=== PATIENT | female | born 1940 | race African-American/Black ===

== ENCOUNTER → 2017-02-23 | Outpatient (CLI) | payer MEDICARE, BC, OTHER ==
--- NOTE | 2017-02-23 14:38 | RAD ---
Indication chronic chest pain. PA and lateral views of the chest were obtained and are compared to an examination 09/18/2010. Postoperative changes are noted. Clips are seen overlying the right upper chest. Somewhat tortuous thoracic aorta is noted. Mild aneurysmal dilatation of the arch is not excluded. There is no congestive heart failure. An acute parenchymal infiltrate is not seen.. There is no pleural fluid. There is no pneumothorax. IMPRESSION: No acute finding apparent in the chest
== END | disposition home or self-care (01) ==
LOC: DXRAD 14:00
PROVIDERS: ATTEND Internal Medicine Cardiovascular Disease
DX: I65.23 Occlusion and stenosis of bilateral carotid arteries (principal); R06.09 Other forms of dyspnea; R05 Cough
CPT/HCPCS: 71020

== ENCOUNTER 2018-08-30 20:20 | Emergency (ER) | payer MEDICARE, BC, OTHER ==
[2018-08-30] MEDS ORDERED: cloNIDine HCL 0.1 MG TABLET PO ONE (20:30)
[2018-08-30] MEDS ORDERED: IOHEXOL 350 MG/ML 100 ML VIAL. IV ONE (20:30)
[2018-08-30 20:59] LABS: BASO # 0.1 x10^3/uL (0.0-0.2); BASO % 1 % (0-3); EOS # 0.2 x10^3/uL (0.0-0.7); EOS % 4 % (0-3); HEMATOCRIT 36.2 % (36.0-47.0); LYMPH # 2.5 x10^3/uL (1.0-4.8); LYMPH % 43 % (24-48); MEAN CORPUSCULAR HEMOGLOBIN 28 pg (25-35); MEAN CORPUSCULAR HGB CONC 33 g/dL (31-37); MEAN CORPUSCULAR VOLUME 85 fL (79-100); MONO # 0.5 x10^3/uL (0.0-1.1); MONO % 9 % (0-9); NEUT # 2.6 x10^3uL (1.8-7.7); NEUT % 44 % (31-73); PLATELET COUNT 147 x10^3/uL (140-400); RED BLOOD COUNT 4.25 x10^6/uL (3.50-5.40); RED CELL DISTRIBUTION WIDTH 14.5 % (11.5-14.5); WHITE BLOOD COUNT 5.8 x10^3/uL (4.0-11.0)
[2018-08-30] MEDS ORDERED: ESMOLOL 2500MG/250ML PREMIX 250 ML IV ONE (21:00)
[2018-08-30 21:06] LABS: ALBUMIN 3.9 g/dL (3.4-5.0); ALBUMIN/GLOBULIN RATIO 0.8 (1.0-1.7); CALCIUM 9.8 mg/dL (8.5-10.1); CREATININE 1.2 mg/dL (0.6-1.0); GFR 52.9; POTASSIUM 4.4 mmol/L (3.5-5.1); TOTAL BILIRUBIN 0.4 mg/dL (0.2-1.0); TOTAL PROTEIN 8.8 g/dL (6.4-8.2)
[2018-08-30] MEDS ORDERED: ONDANSETRON PF 4 MG/2 ML VIAL. IV ONE (21:15)
--- NOTE | 2018-08-30 21:21 | PHYS DOC ---
Adult General Chief Complaint Chief Complaint: CHEST PAIN HPI HPI 77-year-old female presents via EMS with central chest pain. She describes the pain as a tearing/sharp sensation. It radiates through to her back. The patient has a history of abdominal aortic aneurysm that leaked and was repaired in 2014. Her current pain feels similar. At its worse it is been 10 out of 10. On arrival it is 10 out of 10. The patient has been having intermittent pain last 3 days. Doesn't seem to be a particular pattern to the pain. Prior to arrival, the pain increased significantly and that's why she came to the ED. She denies fever or chills. The patient has been taking her medicines, but admits that she is not taking carvedilol twice a day because she didn't realize it was supposed to be twice a day. She is only taking it in the morning. Review of Systems Review of Systems Constitutional: Denies fever or chills [] Eyes: Denies change in visual acuity, redness, or eye pain [] HENT: Denies nasal congestion or sore throat [] Respiratory: shortness of breath [] Cardiovascular: No additional information not addressed in HPI [] GI: Denies abdominal pain, nausea, vomiting, bloody stools or diarrhea [] : Denies dysuria or hematuria [] Musculoskeletal: Denies back pain or joint pain [] Integument: Denies rash or skin lesions [] Neurologic: Denies headache, focal weakness or sensory changes [] Endocrine: Denies polyuria or polydipsia [] All other systems were reviewed and found to be within normal limits, except as documented in this note. Current Medications Current Medications Current Medications Medications (Trade) Dose Ordered Sig/Lbessing Start Time Stop Time Status Last Admin Dose Admin Clonidine HCl (Catapres) 0.2 mg 1X ONCE 08/30/18 20:30 08/30/18 20:36 DC Esmolol HCl 250 ml @ 0 mls/hr 1X ONCE 08/30/18 21:00 08/30/18 21:01 DC Iohexol (Omnipaque 350 Mg/ml) 100 ml 1X ONCE 08/30/18 20:30 08/30/18 20:36 DC 08/30/18 20:40 100 ML Allergies Allergies Allergies Coded Allergies Type Severity Reaction Last Updated Verified Penicillins Allergy Unknown 08/30/18 Yes codeine Allergy Unknown 08/30/18 Yes morphine Allergy Unknown 08/30/18 Yes prednisone Allergy Unknown 08/30/18 Yes promethazine Allergy Unknown 08/30/18 Yes rabeprazole Allergy Unknown 08/30/18 Yes simvastatin Allergy Unknown 08/30/18 Yes Physical Exam Physical Exam Constitutional: Well developed, well nourished, no acute distress, non-toxic appearance. [] HENT: Normocephalic, atraumatic, bilateral external ears normal, oropharynx moist, no oral exudates, nose normal. [] Eyes: PERRLA, EOMI, conjunctiva normal, no discharge. [] Neck: Normal range of motion, no tenderness, supple, no stridor. [] Cardiovascular:Heart rate regular rhythm, systolic ejection murmur 3/6[] Lungs & Thorax: Bilateral breath sounds clear to auscultation [] Abdomen: Bowel sounds normal, soft, no tenderness, no masses, no pulsatile masses. [] Skin: Warm, dry, no erythema, no rash. [] Back: No tenderness, no CVA tenderness. [] Extremities: No tenderness, no cyanosis, no clubbing, ROM intact, no edema. [] Neurologic: Alert and oriented X 3, normal motor function, normal sensory function, no focal deficits noted. [] Psychologic: Affect normal, judgement normal, mood normal. [] Current Patient Data Lab Results Laboratory Tests Test 08/30/18 20:50 White Blood Count 5.8 x10^3/uL (4.0-11.0) Red Blood Count 4.25 x10^6/uL (3.50-5.40) Hemoglobin 12.0 g/dL (12.0-15.5) Hematocrit 36.2 % (36.0-47.0) Mean Corpuscular Volume 85 fL (79-100) Mean Corpuscular Hemoglobin 28 pg (25-35) Mean Corpuscular Hemoglobin Concent 33 g/dL (31-37) Red Cell Distribution Width 14.5 % (11.5-14.5) Platelet Count 147 x10^3/uL (140-400) Neutrophils (%) (Auto) 44 % (31-73) Lymphocytes (%) (Auto) 43 % (24-48) Monocytes (%) (Auto) 9 % (0-9) Eosinophils (%) (Auto) 4 % (0-3) H Basophils (%) (Auto) 1 % (0-3) Neutrophils # (Auto) 2.6 x10^3uL (1.8-7.7) Lymphocytes # (Auto) 2.5 x10^3/uL (1.0-4.8) Monocytes # (Auto) 0.5 x10^3/uL (0.0-1.1) Eosinophils # (Auto) 0.2 x10^3/uL (0.0-0.7) Basophils # (Auto) 0.1 x10^3/uL (0.0-0.2) Sodium Level 139 mmol/L (136-145) Potassium Level 4.4 mmol/L (3.5-5.1) Chloride Level 103 mmol/L (98-107) Carbon Dioxide Level 27 mmol/L (21-32) Anion Gap 9 (6-14) Blood Urea Nitrogen 15 mg/dL (7-20) Creatinine 1.2 mg/dL (0.6-1.0) H Estimated GFR (Cockcroft-Gault) 52.9 BUN/Creatinine Ratio 13 (6-20) Glucose Level 99 mg/dL (70-99) Calcium Level 9.8 mg/dL (8.5-10.1) Total Bilirubin 0.4 mg/dL (0.2-1.0) Aspartate Amino Transferase (AST) 34 U/L (15-37) Alanine Aminotransferase (ALT) 24 U/L (14-59) Alkaline Phosphatase 105 U/L (46-116) Total Protein 8.8 g/dL (6.4-8.2) H Albumin 3.9 g/dL (3.4-5.0) Albumin/Globulin Ratio 0.8 (1.0-1.7) L EKG EKG Sinus rhythm, rate 67, normal axis, no ST elevations or depression.[] Radiology/Procedures Radiology/Procedures [] Course & Med Decision Making Course & Med Decision Making Pertinent Labs and Imaging studies reviewed. (See chart for details) The patient's blood pressure on arrival was 216/92. Her heart rate 62. The patient heart rate has been between 62 and 70. Patient's description of pain is concerning for aortic dissection. CT angiogram of the chest and abdomen has been ordered. I will start her on esmolol, but without bolus due to her heart rate. I have given her 75 g of fentanyl for pain. The patient has tolerated 100 mcg/kg/m of esmolol heart rate is 63. I discussed the patient with Dr. Seo and he has recommended the patient go to [facility]. Discussed this with the patient and she discussed with her family. They would prefer to go to [facility] where she had her previous aortic surgery. I discussed the patient with Dr. Weiss and Dr. Ruiz at [facility] and they have accepted the patient for admission. They have advised adding additional Cardene drip for the patient's blood pressure which is still 162/60. Patient will go by ambulance. Greater than 35 minutes of critical care time was spent on this patient exclusive of other billable procedures. [] Dragon Disclaimer Dragon Disclaimer This electronic medical record was generated, in whole or in part, using a voice recognition dictation system. Departure Departure: Impression: Primary Impression: Aortic aneurysm Additional Impressions: Chest pain Hypertensive emergency Disposition: 02 XFER SHT-TRM HOSP Condition: GUARDED Referrals: BLAKE BRADY MD (PCP) Problem Qualifiers Primary Impression: Aortic aneurysm Aortic location: thoracic aorta Presence of rupture: without rupture Qualified Codes: I71.2 - Thoracic aortic aneurysm, without rupture Additional Impressions: Chest pain Chest pain type: other chest pain Qualified Codes: R07.89 - Other chest pain NILTON HARDY DO Aug 30, 2018 21:21
[2018-08-30] MEDS ORDERED: IV NORMAL SALINE 500ML 500 ML IV ONE (21:30)
--- NOTE | 2018-08-30 21:39 | RAD ---
Examination: CT ANGIOGRAPHY CHEST ABDOMEN History: Chest pain, hx of Aortic dissection 2015
Gave Omni 350 100cc
Comparison/Correlation: None Findings: Axial images of the chest and abdomen were obtained following IV contrast according to arteriography protocol. Sternal wires are present. 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 Linear density involving the aortic arch at its left lateral aspect is probably artifactually this postoperative patient. There is no evidence of acute aortic dissection. Atherosclerotic calcific involvement of the thoracic aorta noted. 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 At least 50 percent stenosis of the proximal superior mesenteric artery noted. Inferior mesenteric artery unremarkable. Pulmonary arterial vasculature is normal with no thromboembolic disease. No pleural or pericardial effusion. Diffuse emphysematous involvement of the lung gee noted. Mild gravity dependent atelectasis noted. No enlarged thoracic lymph nodes. No focal suspicious pulmonary nodule or consolidation. Moderate quantity of debris in the stomach noted. Liver, spleen, pancreas, adrenal glands, and kidneys are unremarkable on arteriographic phase images provided. Cholecystectomy. Ascites involving the abdomen. No enlarged abdominal lymph nodes. No abdominal aortic aneurysm. 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 No findings of acute aortic dissection identified. Severe emphysematous involvement of the lung gee. 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 Electronically signed by: Gurwinder Mccormick MD (08/30/2018 9:35 PM) [facility]
[2018-08-30] MEDS ORDERED: IV NORMAL SALINE 250ML 0 ML ONE (22:41)
[2018-08-30 23:10] VITALS: BP 142/62
--- NOTE | 2018-08-31 23:05 | EKG ---
[address] [address] Test Date: 2018-08-30 Test Time: 20:23:31 Pat Name: CATHERINE ARRIOLA Department: Room: Gender: F Art[employer]: : [id number] Requested By: NILTON HARDY Order Number: [id number] Reading MD: Emiliano Wyatt Measurements Intervals [place] Rate: 67 P: 0 IL: 190 QRS: 24 QRSD: 88 T: 105 QT: 384 QTc: 409 Interpretive Statements SINUS RHYTHM LVH WITH REPOLARIZATION ABNORMALITY Electronically Signed On 09-06-2018 17:27:01 NEWS VIDEOGRAPHER by Emiliano Wyatt
== END 2018-08-30 23:15 | disposition short-term general hospital (02) ==
LOC: ER 20:20
DX: I71.2 Thoracic aortic aneurysm, without rupture (principal); I16.1 Hypertensive emergency; R07.89 Other chest pain; Z88.0 Allergy status to penicillin; Z88.5 Allergy status to narcotic agent; Z88.8 Allergy status to other drugs, medicaments and biological substances
CPT/HCPCS: 36415; 71275; 74175; 80053; 84484; 85025; 93005; 96365; 96366; 96375; 99285; J2405; J3010; J3490; J7040; J7050; Q9967